=== PATIENT | female | born 1965 | race African-American/Black ===

== ENCOUNTER → 2017-09-30 | Outpatient (CLI) | payer MEDICARE ==
[~2017-09-30] VITALS: Ht 167.6 cm; Wt 92.5 kg
[~2017-09-30] MED LIST: ACETAMINOPHEN-1 EAC1 PO; ADULT LOW DOSE81 MG; AMLODIPINE BESY10 MG; ANTIDEPRESSION; ASPIR 8181 MG PO; BACTRIM DS TAB1 EACH PO; CARVEDILOL6.25 MG; CARVEDILOL6.25 MG PO; CIPROFLOXACIN500 M1 PO; COREG25 MG PO; CRESTOR10 MG; DIOVAN320 MG; EDARBYCLOR 40-1 EAC1 PO; FIORICET 50-321 EACH PO; HUMALOG KW100 UNIT/1 SUBQ; HYDRALAZINE 10M10 MG; HYDROCHLOROTH12.5 MG PO; HYDROCHLOROTHIA25 M1 PO; IBUPROFEN 800800 MG PO; LANTUS SOL100 UNIT/1 SUBLING; LOPRESSOR100 MG; MIRALAX255 GM PO; NORCO 5-325 TA1 EACH PO; PHENERGAN 25 MG25 M1 PO; PLAVIX 75 MG TA75 M1 PO; PREDNISONE50 MG PO; PRILOSEC40 MG; PRILOSEC40 MG PO; REPATHA SY140 MG/1 M SUBQ; ULTRAM 50MG TAB50 MG PO; VICODIN 5-5001 EACH PO; ZOFRAN ODT4 MG PO
--- NOTE | ~2017-09-30 | HPC ---
[facility] [place] [address] PAIN MANAGEMENT CONSULTATION Name: ELLIOT ASHRAF Room #: BETZAIDA Ku#: [id number] Admission: 09/30/17 Attend Phys: eKyur Melara DO Discharge: Date of : 63 Report #: [id number] THIS REPORT FOR: //name// CC: Andrei Melara DATE OF SERVICE: 09/30/2017 The patient is a 52-year-old female seen in consultation at the request of Dr. Rivas for evaluation of pain in the left shoulder and arm. The patient notes pain has been present for 6 months. She has been taking Advil with nominal efficacy. Having trouble with grasping the left hand. She notes she had a fistula placed in the left forearm at [facility] for plasmapheresis for her dyslipidemia. Unfortunately, the fistula failed, she was never able to have the plasmapheresis and she thinks her symptoms began around that time. She notes symptoms are continuous, steady, constant, burning, shooting, cramping, aching, crushing, gnawing, throbbing, sharp, stabbing. She rates pain anywhere from 7-10 on VAS. She notes pain seems to be exacerbated with movement. Gets some relief with the Advil. Denies any myelopathic symptoms. REVIEW OF SYSTEMS: Complete review of systems attached to chart and gone over with the patient. She is . She does not smoke, drink alcohol to excess. Has a history of insulin-dependent diabetes, uses Lantus and Humalog insulin, history of hypertension treated with carvedilol. Atherosclerotic peripheral vascular disease, had a left lower extremity stent placed in March and is currently taking Plavix. History of dyslipidemia, again status post left forearm shunt for plasmapheresis, which never occurred. History of right hand carpal tunnel release in 2003 (contralateral to primary left-sided symptoms). Otherwise, 12 point review of systems is noncontributory (negative). The patient retired since 2008. Pain impact score averages 51/70. PHYSICAL EXAMINATION: Reveals a 5-foot 6-inch, 204-pound female, BMI is 32.9 kilograms per meter squared. Blood pressure is 145/92, pulse 72, respirations are 16. Cranial nerves 2-12 are grossly intact. Pupils equal, react to light and accommodation. Extraocular muscles are intact. She is alert and oriented to person, place and time, judged to be a reasonable historian. Thyroid is modestly enlarged. Cervical range of motion is limited. Does have slight decreased left arm strength to deltoid, biceps, triceps strength, difficult to tell if this is due to pain or effort related versus neurologic. Does have a positive Tinel's left radial. Hand grasp is modestly diminished on the left compared to the right. Does have a well-healed surgical scar in the anterior radial aspect of the left forearm compatible with prior shunt placement. Skin integument is intact. Heart is regular rhythm without murmur. Lungs clear to [address] [address] PAIN MANAGEMENT CONSULTATION Name: ELLIOT ASHRAF Room #: BETZAIDA Ku#: [id number] Admission: 09/30/17 Attend Phys: Keyur Melara DO Discharge: Date of : 63 Report #: [id number] auscultation. Abdomen, she is moderately endomorphic build. Gait is tandem. Lower extremity strength is preserved. Skin integument is otherwise intact. DIAGNOSTIC STUDIES: There are no recent diagnostic studies available for evaluation at this time. ASSESSMENT: Symptomatic cervical radiculopathy by clinical exam and history, possible component of peripheral neuropathy. RECOMMENDATIONS: 1. MRI of cervical spine. 2. We will start the patient on Lyrica 50 mg at bedtime, gradually titrating to b.i.d. 3. We will plan on a cervical epidural injection under fluoroscopy 7 days off Plavix (we will use 60 mg triamcinolone in consideration of insulin-dependent diabetes). The patient already is scheduled for an upper GI endoscopy. She will need to be off her Plavix for 4 days. We will plan on proceeding with our procedure 3 days subsequent. We will order an MRI of the cervical spine as well. Thank you for allowing me to participate in the patient's care. I will keep you abreast of her progress. <ELECTRONICALLY SIGNED> By: Keyur Melara DO 10/02/17 0819 [id number] Keyur Melara DO /nt
[2017-09-30 09:15] VITALS: BP 145/92
== END ==
LOC: PAIN 07:00
DX: M54.12 Radiculopathy, cervical region (principal); G62.9 Polyneuropathy, unspecified

== ENCOUNTER → 2017-12-23 | Outpatient (CLI) | payer MEDICARE ==
[~2017-12-23] VITALS: Ht 167.6 cm; Wt 90.7 kg
[~2017-12-23] MED LIST changes: +LYRICA 50 MG50 MG PO; +NEURONTIN 300300 M1 PO
--- NOTE | ~2017-12-23 | HPC ---
[facility] [place] [address] PAIN MANAGEMENT CONSULTATION Name: ELLIOT ASHRAF Room #: BETZAIDA EVA Ku#: [id number] Admission: 12/23/17 Attend Phys: Keyur Melara DO Discharge: Date of : 63 Report #: [id number] THIS REPORT FOR: //name// CC: Andrei Melara DATE OF SERVICE: 12/23/2017 The patient is a 52-year-old female, prior seen in consultation 09/30/2017, diagnosed with left forearm pain, status post shunt placement for plasmapheresis for dyslipidemia. Unfortunately, following the placement she developed neuropathic pain in the left forearm. Physical exam was actually unremarkable from a cervical radicular component, no obvious radicular symptoms are noted, no neural tensioning symptoms noted. I had ordered an EMG of the left upper extremity. This was ultimately accomplished 12/16/2017. EMG of the left upper extremity median and ulnar nerves, left deltoid, left biceps, left flexor carpi ulnaris, left abductor digitorum minimus, left abductor pollicis brevis and left cervical paraspinal muscles all were within normal limits. The patient returns to pain clinic today noting ongoing pain. She describes neuropathic descriptors in the left forearm. Pain is in the shoulder and arm, but primarily distal forearm. Again, the shunt implant was 10/12/2016, some 6 months after surgery pain became quite problematic, burning, pins and needles, constant sensation. She rates it a 9 on a VAS, seems to be exacerbated with weather changes and raising her left arm. Physical exam is unchanged from presentation, a 52-year-old female, BMI is 32.3 kg per meter squared. Vital signs are stable as noted in the EMR. No intrinsic hand muscle wasting, though she does have hyperpathia and allodynia about the forearm. ASSESSMENT: Neuropathic pain, left upper extremity. EMG is unremarkable. Pain appears to be primarily neuropathic. RECOMMENDATIONS: We will start the patient on Lyrica 50 mg at bedtime, samples and prescription given (prior provided a prescription for gabapentin, which the patient failed due to cognitive impairment). We will have the patient follow up in about 3-4 weeks for reevaluation. If she is doing well with the Lyrica, we may continue to push that dose up a little bit, 50-100 mg at bedtime. We may consider addition of a complimentary sodium channel membrane stabilizing agent (Trileptal?). If she fails calcium channel membrane stabilizing agents (Lyrica), may consider stellate ganglion block for neuropathic pain, left upper extremity. [address] [address] PAIN MANAGEMENT CONSULTATION Name: ELLIOT ASHRAF Room #: REG EVA Ku#: [id number] Admission: 12/23/17 Attend Phys: Keyur Melara DO Discharge: Date of : 63 Report #: [id number] Thank you for allowing me to participate in the patient's care. She understands that I will be leaving the practice. I will have her follow up with one of my partners in 3-4 weeks to evaluate efficacy of medication changes and to pursue either further medication changes or interventional therapy as outlined above. Discharged in good and stable condition. <ELECTRONICALLY SIGNED> By: Keyur Melara DO 12/25/17 0734 [id number] Keyur Melara DO /nt
[2017-12-23 10:46] VITALS: BP 101/65
== END ==
LOC: PAIN 07:57
DX: M79.632 Pain in left forearm (principal); M79.2 Neuralgia and neuritis, unspecified

== ENCOUNTER → 2019-06-30 | Outpatient (CLI) | payer MEDICARE | LOC: SJCVCIMAG 06-23 11:20 | DX: I65.23 Occlusion and stenosis of bilateral carotid arteries (principal); I70.201 Unspecified atherosclerosis of native arteries of extremities, right leg ==

== ENCOUNTER → 2019-10-07 | Outpatient (CLI) | payer MEDICARE | LOC: SJCVC 11:35 | DX: I10 Essential (primary) hypertension (principal); E78.5 Hyperlipidemia, unspecified; I65.23 Occlusion and stenosis of bilateral carotid arteries; I73.9 Peripheral vascular disease, unspecified; E11.9 Type 2 diabetes mellitus without complications; Z79.4 Long term (current) use of insulin; K74.60 Unspecified cirrhosis of liver; Z79.82 Long term (current) use of aspirin; Z79.899 Other long term (current) drug therapy; Z82.49 Family history of ischemic heart disease and other diseases of the circulatory system ==

== ENCOUNTER → 2020-01-14 | Outpatient (CLI) | payer MEDICARE | LOC: SJCVC 15:09 | PROVIDERS: ATTEND Internal Medicine | DX: E78.5 Hyperlipidemia, unspecified (principal); K21.9 Gastro-esophageal reflux disease without esophagitis; E11.9 Type 2 diabetes mellitus without complications; I25.10 Atherosclerotic heart disease of native coronary artery without angina pectoris; I73.9 Peripheral vascular disease, unspecified; I10 Essential (primary) hypertension; Z79.899 Other long term (current) drug therapy ==

== ENCOUNTER → 2020-04-08 | Outpatient (CLI) | payer MEDICARE | LOC: SJCVC 13:15 | PROVIDERS: ATTEND Internal Medicine | DX: I10 Essential (primary) hypertension (principal); E78.5 Hyperlipidemia, unspecified; I65.23 Occlusion and stenosis of bilateral carotid arteries; E11.59 Type 2 diabetes mellitus with other circulatory complications; K75.81 Nonalcoholic steatohepatitis (NASH); K74.60 Unspecified cirrhosis of liver; Z79.4 Long term (current) use of insulin ==

== ENCOUNTER → 2021-04-18 | Outpatient (CLI) | payer MEDICARE | LOC: SJCVCIMAG 07:37 | PROVIDERS: ATTEND Internal Medicine | DX: I65.23 Occlusion and stenosis of bilateral carotid arteries (principal); I10 Essential (primary) hypertension; E78.5 Hyperlipidemia, unspecified; I73.9 Peripheral vascular disease, unspecified; E11.9 Type 2 diabetes mellitus without complications; K75.81 Nonalcoholic steatohepatitis (NASH); K74.60 Unspecified cirrhosis of liver; Z79.4 Long term (current) use of insulin; D64.9 Anemia, unspecified; F32.9 Major depressive disorder, single episode, unspecified; K21.9 Gastro-esophageal reflux disease without esophagitis; Z79.82 Long term (current) use of aspirin; Z79.899 Other long term (current) drug therapy; Z88.0 Allergy status to penicillin; Z88.2 Allergy status to sulfonamides; Z88.8 Allergy status to other drugs, medicaments and biological substances ==